=== PATIENT | male | born 2000 | race Hispanic/Latino ===

== ENCOUNTER 2020-03-06 10:41 | Emergency (ER) | payer OTHER ==
[~2020-03-06] VITALS: Ht 170.2 cm; Wt 71.5 kg
[2020-03-06 10:43] VITALS: BP 122/60
[2020-03-06] MEDS ORDERED: TYLENOL 500 MG (10:49)
[2020-03-06] MEDS ORDERED: BACTRIM 160MG/800MG DS TAB PO ONE (11:15)
[2020-03-06] MEDS ORDERED: BACT800T5 PO (11:39)
== END 2020-03-06 11:44 | disposition home or self-care (01) ==
LOC: M ED 10:41
DX: L03.114 Cellulitis of left upper limb (principal); L73.9 Follicular disorder, unspecified